=== PATIENT | male | born 1995 | race African-American/Black ===

== ENCOUNTER 2018-02-21 17:43 | Emergency (ER) | payer SELFPAY ==
[~2018-02-21] VITALS: Ht 180.3 cm; Wt 95.2 kg
[2018-02-21 18:08] VITALS: BP 152/88
== END 2018-02-21 19:39 | disposition home or self-care (01) ==
LOC: ED 17:43
DX: J02.9 Acute pharyngitis, unspecified (principal); R03.0 Elevated blood-pressure reading, without diagnosis of hypertension; J45.909 Unspecified asthma, uncomplicated
CPT/HCPCS: J0696; J1100; J1885

== ENCOUNTER 2018-03-21 20:00 | Emergency (ER) | payer SELFPAY ==
[~2018-03-21] VITALS: Ht 180.3 cm; Wt 94.8 kg
[2018-03-21 20:18] VITALS: Ht 180.3 cm; Wt 94.8 kg
[2018-03-22 00:17] VITALS: BP 146/80
== END 2018-03-22 00:17 | disposition home or self-care (01) ==
LOC: ED 20:00
DX: J36 Peritonsillar abscess (principal); J45.909 Unspecified asthma, uncomplicated
CPT/HCPCS: J1885; J2001; J7512

== ENCOUNTER 2018-08-28 17:26 | Emergency (ER) | payer OTHER ==
[~2018-08-28] VITALS: Ht 180.3 cm; Wt 93.6 kg
[2018-08-28 17:36] VITALS: Ht 180.3 cm; Wt 93.6 kg
[2018-08-28 19:12] VITALS: BP 140/78
== END 2018-08-28 19:12 | disposition home or self-care (01) ==
LOC: ED 17:26
DX: J03.90 Acute tonsillitis, unspecified (principal); R19.7 Diarrhea, unspecified
CPT/HCPCS: J0561; J7512

== ENCOUNTER 2020-07-09 14:40 | Emergency (ER) | payer OTHER ==
[~2020-07-09] VITALS: Ht 177.8 cm; Wt 91.6 kg
[2020-07-09 14:46] VITALS: Ht 177.8 cm; Wt 91.6 kg
[2020-07-09 18:10] VITALS: BP 140/90
== END 2020-07-09 18:10 | disposition home or self-care (01) ==
LOC: ED 14:40
DX: J36 Peritonsillar abscess (principal); J45.909 Unspecified asthma, uncomplicated
CPT/HCPCS: J0561; J1100

== ENCOUNTER 2020-07-17 16:51 | Emergency (ER) | payer OTHER ==
[~2020-07-17] VITALS: Ht 177.8 cm; Wt 89.8 kg
[2020-07-17 17:11] VITALS: BP 158/96; Ht 177.8 cm; Wt 89.8 kg
== END 2020-07-17 18:30 | disposition home or self-care (01) ==
LOC: ED 16:51
DX: L02.31 Cutaneous abscess of buttock (principal); J45.909 Unspecified asthma, uncomplicated
CPT/HCPCS: J2001